=== PATIENT | female | born 1945 | race Caucasian/White ===

== ENCOUNTER 2017-04-13 10:52 | Emergency (ER) | payer OTHER, MEDICARE ==
[2017-04-13 11:08] VITALS: BP 155/75
[2017-04-13] MEDS ORDERED: Sodium Chloride 0.9% 10 ML Syringe FLUSH PRN ×2 (11:23→11:27)
[2017-04-13] MEDS ORDERED: Iopamidol 612 MG/ML 100 ML Bottle IVPUSH ONE (11:27)
--- NOTE | 2017-04-13 11:37 | EDM.PDOC ---
ED HPI GENERAL MEDICAL PROBLEM - General Chief Complaint: Back Pain or Injury Stated Complaint: BACK PAIN DUE TO FALL Time Seen by Provider: 04/13/17 11:15 Source of Information: Reports: Patient History Limitations: Reports: No Limitations - History of Present Illness INITIAL COMMENTS - FREE TEXT/NARRATIVE: 71-year-old female presents for evaluation and treatment of left-sided back pain. Patient reports that on Thursday she fell down approximately 10 steps. She was going down the stairs when she slipped and fell. She states she did not hit her head nor lose consciousness. She is denying headaches, nausea, vomiting , neck pain, chest pain, shortness of breath. Patient is reporting pain to her left mid back and flank. She denies any hematuria. She denies any bruising. Denies any abdominal pain. Patient is visiting from [place]. 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 Right Middle Back Pain Score (Numeric/FACES): 9 - Related Data Allergies Allergy/AdvReac Type Severity Reaction Status Date / Time No Known Allergies Allergy Verified 04/13/17 11:13 Home Meds: Home Meds Irbesartan [Avapro] 300 mg PO DAILY 04/13/17 [History] Levothyroxine 125 mcg PO DAILY 04/13/17 [History] Multivitamin [Multi-Vitamin Daily] 1 each PO DAILY 04/13/17 [History] atorvaSTATin [Lipitor] 60 mg PO BEDTIME 04/13/17 [History] Past Medical History Cardiovascular History: Reports: High Cholesterol, Hypertension Endocrine/Metabolic History: Reports: Hypothyroidism Oncologic (Cancer) History: Reports: Basal Cell Carcinoma - Past Surgical History Female Surgical History: Reports: Hysterectomy Social & Family History - Tobacco Use Smoking Status *Q: Never Smoker Second Hand Smoke Exposure: No - Caffeine Use Caffeine Use: Reports: Coffee - Alcohol Use Days Per Week of Alcohol Use: 7 Number of Drinks Per Day: 1 Total Drinks Per Week: 7 - Recreational Drug Use Recreational Drug Use: No ED ROS GENERAL - Review of Systems Review Of Systems: See Below Respiratory: Denies: Shortness of Breath Cardiovascular: Denies: Chest Pain GI/Abdominal: Denies: Abdominal Pain, Nausea, Vomiting : Reports: Flank Pain (left). Denies: Hematuria Musculoskeletal: Reports: Back Pain (left mid back). Denies: Neck Pain Skin: Denies: Bruising, Wound Neurological: Denies: Syncope ED EXAM,LOWER BACK PAIN/INJURY - Physical Exam Exam: See Below Exam Limited By: No Limitations General Appearance: Alert, WD/WN, No Apparent Distress Eye Exam: Bilateral Eye: PERRL Ears: Normal External Exam Nose: Normal Inspection Throat/Mouth: Normal Inspection, Normal Lips, Normal Voice, No Airway Compromise Head: Atraumatic, Normocephalic Neck: Normal Inspection, Supple, Non-Tender, Full Range of Motion Respiratory/Chest: No Respiratory Distress, Lungs Clear, Normal Breath Sounds Cardiovascular: Normal Peripheral Pulses, Regular Rate, Rhythm, Systolic Murmur (grade 2 systolic heart murmur) GI/Abdominal: Soft, Non-Tender Back Exam: Normal Inspection, CVA Tenderness (L), Paraspinal Tenderness (left around t10-l2) Neurological: Alert, Normal Mood/Affect, Normal Gait Psychiatric: Normal Affect, Normal Mood Skin Exam: Warm, Dry, Normal Color Course - Vital Signs Last Recorded V/S: Last Vital Signs Temp 36.2 C 04/13/17 11:06 Pulse 52 L 04/13/17 11:06 Resp 17 04/13/17 11:06 BP 155/75 H 04/13/17 11:06 Pulse Ox 98 04/13/17 11:06 - Orders/Labs/Meds Orders: Active Orders 24 hr Category Date Time Status Peripheral IV Care [RC] . DIRECTED Care 04/13/17 11:23 Active Peripheral IV Insertion Adult [OM.PC] Routine Oth 04/13/17 11:22 Ordered Labs: Laboratory Tests 04/13/17 04/13/17 04/13/17 Range/Units 11:35 11:45 11:45 WBC 10.40 H (3.98-10.04) K/mm3 RBC 4.86 (3.98-5.22) M/mm3 Hgb 15.0 (11.2-15.7) gm/L Hct 44.0 (34.1-44.9) % MCV 90.5 (79.4-94.8) fl MCH 30.9 (25.6-32.2) pg MCHC 34.1 (32.2-35.5) g/dl RDW Std Deviation 40.9 (36.4-46.3) fL Plt Count 175 L (182-369) K/mm3 MPV 12.2 (9.4-12.3) fl Neut % (Auto) 65.9 (34.0-71.1) % Lymph % (Auto) 23.0 (19.3-51.7) % [place] % (Auto) 9.1 (4.7-12.5) % Eos % (Auto) 1.2 (0.7-5.8) Baso % (Auto) 0.6 (0.1-1.2) % Neut # (Auto) 6.86 H (1.56-6.13) K/mm3 Lymph # (Auto) 2.39 (1.18-3.74) K/mm3 [place] # (Auto) 0.95 H (0.24-0.36) K/mm3 Eos # (Auto) 0.12 (0.04-0.36) K/mm3 Baso # (Auto) 0.06 (0.01-0.08) K/mm3 Sodium 144 (136-145) mEq/L Potassium 3.8 (3.5-5.1) mEq/L Chloride 105 (98-107) mEq/L Carbon Dioxide 30 (21-32) mEq/L Anion Gap 12.8 (5-15) BUN 10 (7-18) mg/dL Creatinine 0.9 (0.55-1.02) mg/dL Est Cr Clr Drug Dosing 40.58 mL/min Estimated GFR (MDRD) > 60 (>60) mL/min BUN/Creatinine Ratio 11.1 L (14-18) Glucose 95 (83-115) mg/dL Calcium 9.5 (8.5-10.1) mg/dL Total Bilirubin 0.8 (0.2-1.0) mg/dL AST 27 (15-37) U/L ALT 42 (14-59) U/L Alkaline Phosphatase 93 (46-116) U/L Total Protein 8.1 (6.4-8.2) g/dl Albumin 4.4 (3.4-5.0) g/dl Globulin 3.7 gm/dL Albumin/Globulin Ratio 1.2 (1-2) Urine Color Yellow (Yellow) Urine Appearance Clear (Clear) Urine pH 6.5 (5.0-8.0) Ur Specific [place] 1.010 (1.005-1.030) Urine Protein Negative (Negative) Urine Glucose (UA) Negative (Negative) Urine Ketones Negative (Negative) Urine Occult Blood Trace-intact H (Negative) Urine Nitrite Negative (Negative) Urine Bilirubin Negative (Negative) Urine Urobilinogen 0.2 (0.2-1.0) Ur Leukocyte Esterase 1+ H (Negative) Urine RBC 5-10 H (0-5) /hpf Urine WBC 5-10 H (0-5) /hpf Ur Epithelial Cells 0-5 (0-5) /hpf Amorphous Sediment Few H (NOT SEEN) /hpf Urine Bacteria Few (FEW) /hpf Urine Mucus Not seen (FEW) /hpf Meds: Medications Discontinued Medications Generic Name Dose Route Start Last Admin Trade Name Freq PRN Reason Stop Dose Admin Iopamidol 100 ml 04/13/17 11:27 04/13/17 12:42 Isovue-300 (61%) IVPUSH 04/13/17 11:28 100 ml ONETIME ONE Administration Sodium Chloride 10 ml 04/13/17 11:23 04/13/17 11:45 Saline Flush FLUSH 10 ml ASDIRECTED PRN Administration Keep Vein Open Sodium Chloride 10 ml 04/13/17 11:27 04/13/17 12:42 Saline Flush FLUSH 10 ml ONETIME PRN Administration IV FLUSH - Radiology Interpretation Free Text/Narrative:: CT of the abdomen and pelvis impression per Dr. Covington: Impression: 1. Incidental findings as noted above. Nothing acute is appreciated on CT study of the abdomen and pelvis. 3. Small cyst within the left pelvis most likely ovarian in etiology. Recommend pelvic ultrasound in 6 months to confirm stability or hopefully disappearance. - Re-Assessments/Exams Free Text/Narrative Re-Assessment/Exam: 04/13/17 13:22 I offered the patient medication to help with discomfort. She declined. The patient's lab studies have returned. They include the following. White blood cell count 10.40, hemoglobin 15.0 platelets 175. Sodium of 144, potassium 3.8 chloride of 105. Anion gap of 12.8. Glucose 95. UA has trace blood. One plus leukocytes. I reviewed the labs and CT results with the patient. I gave her a copy of her CT and the report as she is from [place] and is visiting here. She is instructed to follow for any ultrasound in 6 months of the ovarian cyst. Discharge instructions as documented. Departure - Departure Time of Disposition: 13:30 Disposition: Home, Self-Care 01 Condition: good Clinical Impression: Bruise of muscle - Discharge Information Instructions: Contusion, [id number] Referrals: PCP,Not In Area [Primary Care Provider] - Forms: ED Department Discharge Additional Instructions: [id number] Aleve or Tylenol as needed for pain relief. Recommend ice or moist heat to the sore areas for additional pain relief. may also try topical product such as icy hot or BenGay. Expect the sore for the next one to 2 weeks. The first 3 days will likely cause the most severe soreness. If you continue to have discomfort after because of two-week therapy and follow up with your primary care provider. Followup with her primary care provider in 6 months for an ultrasound of the left ovarian cyst. Please return to the ER should your symptoms change or worsen. - My Orders Last 24 Hours: My Active Orders 04/13/17 11:22 Peripheral IV Insertion Adult [OM.PC] Routine 04/13/17 11:23 Peripheral IV Care [RC] . DIRECTED - Assessment/Plan Last 24 Hours: My Active Orders 04/13/17 11:22 Peripheral IV Insertion Adult [OM.PC] Routine 04/13/17 11:23 Peripheral IV Care [RC] . DIRECTED
--- NOTE | 2017-04-13 13:24 | CT ---
CT abdomen and pelvis Technique: Multiple axial sections were obtained from above the dome of the diaphragm inferiorly through the pubic symphysis. Intravenous contrast not utilized. No oral contrast has been given. Delayed images were also obtained through the abdomen and pelvis. Comparison: No previous imaging is available. Findings: Dense calcification is noted within the left heart most likely due to prominent mitral annulus calcification. Heart is mildly enlarged. Visualized lung bases shows nothing acute. Liver and spleen shows no focal parenchymal abnormality. Gallbladder shows no calcified gallstones. Adrenal glands show no nodule. Pancreas is within normal limits. Kidneys show contrast enhancement and appear within normal limits. Incidental note of extrarenal pelvis on the right side. Delayed images shows contrast within nondilated ureters as well as contrast within the bladder. Aorta shows atherosclerotic change without aneurysmal dilatation. No retroperitoneal adenopathy or mesenteric abnormalities are seen. Small cyst is noted within the left side of the pelvis most likely were representing small ovarian cyst measuring 2.8 cm. No additional pelvic abnormality is appreciated. Bone window settings were reviewed which shows spondylolisthesis at L4-5 due to degenerative apophyseal change. Disc space narrowing and vacuum phenomena is seen primarily within L4-L5 and L5-S1. Lesser degenerative change is scattered within other portions of the spine. Impression: 1. Incidental findings as noted above. Nothing acute is appreciated on CT study of the abdomen and pelvis. 3. Small cyst within the left pelvis most likely ovarian in etiology. Recommend pelvic ultrasound in 6 months to confirm stability or hopefully disappearance. Diagnostic code #9
== END 2017-04-13 13:44 | disposition home or self-care (01) ==
LOC: JD.ED 10:52
DX: S20.221A Contusion of right back wall of thorax, initial encounter (principal); W10.8XXA Fall (on) (from) other stairs and steps, initial encounter; I10 Essential (primary) hypertension; E78.00 Pure hypercholesterolemia, unspecified; E03.9 Hypothyroidism, unspecified; Z85.828 Personal history of other malignant neoplasm of skin; Z90.710 Acquired absence of both cervix and uterus; Z79.899 Other long term (current) drug therapy
CPT/HCPCS: 36415; 74177; 80053; 81001; 85025; 99284; J7050; Q9967